=== PATIENT | male | born 1990 | race American Indian/Alaskan Native ===

== ENCOUNTER 2019-03-29 16:03 | Emergency (ER) | payer SELFPAY ==
--- NOTE | 2019-03-29 16:50 | Event Note ---
ED Screening Note Date of service: 03/29/19 Time: 16:46 ED Screening Note: 28 y/o male comes in for dysuria times today. Not sure if he is having penile discharge. Sexually active with both males and females unprotected. No PMH. No meds. This initial assessment/diagnostic orders/clinical plan/treatment(s) is/are subject to change based on patients health status, clinical progression and re- assessment by fellow clinical providers in the ED. Further treatment and workup at subsequent clinical providers discretion. Patient/guardian urged not to elope from the ED as their condition may be serious if not clinically assessed and managed. Initial orders include:
[2019-03-29 20:20] LABS: Bilirubin,Urine NEG (Negative); Blood,Urine NEG (Negative); Color,Urine Yellow (Yellow); Mucus,Urine FEW /HPF; Protein,Urine <15 mg/dL mg/dL (Negative); Urobilinogen,Urine < 2.0 mg/dL (<2.0)
[2019-03-29] MEDS ORDERED: ZITHROMAX PO ONE (20:22)
[2019-03-29] MEDS ORDERED: ROCEPHIN IM ONE (20:22)
[2019-03-29] MEDS ORDERED: XYLOCAINE 1% MPF 5 mL INFILTRATI ONE (20:22)
--- NOTE | 2019-03-29 20:31 | Emergency Department Report ---
ED Male HPI - General Chief complaint: Urogenital-Male Stated complaint: PAIN WITH URINATION Time Seen by Provider: 03/29/19 16:46 Source: patient Mode of arrival: Ambulatory Limitations: No Limitations - History of Present Illness Initial comments: Patient is a 28-year-old male presents the emergency room with complaint of dysuria that began 2 days ago. States he did have unprotected intercourse. He states he noticed a small amount of penile discharge couple days ago but has not experienced since then. He denies any testicular pain, testicular edema, penile pain, penile lesions, penile blisters. denies any histories of STDs in the past. pt denies any past medical history or allergies to medications. - Related Data Allergies Allergy/AdvReac Type Severity Reaction Status Date / Time No Known Allergies Allergy Unverified 03/29/19 16:06 ED Review of Systems ROS: Stated complaint: PAIN WITH URINATION Other details as noted in HPI Comment: All other systems reviewed and negative ED Past Medical Hx - Past Medical History Previous Medical History?: No - Surgical History Past Surgical History?: No - Social History Smoking Status: Never Smoker Substance Use Type: None ED Physical Exam - General Limitations: No Limitations General appearance: alert, in no apparent distress - Head Head exam: Present: atraumatic, normocephalic - Eye Eye exam: Present: normal appearance - ENT ENT exam: Present: mucous membranes moist - Respiratory Respiratory exam: Present: normal lung sounds bilaterally. Absent: respiratory distress, wheezes, rales, rhonchi, stridor, accessory muscle use, decreased breath sounds, prolonged expiratory - Cardiovascular Cardiovascular Exam: Present: regular rate, normal rhythm, normal heart sounds. Absent: systolic murmur, diastolic murmur, rubs, gallop - GI/Abdominal GI/Abdominal exam: Present: soft, normal bowel sounds. Absent: distended, tenderness, guarding, rebound, rigid - exam: Present: other (pt defered ) - Neurological Exam Neurological exam: Present: alert, oriented X3 - Psychiatric Psychiatric exam: Present: normal affect, normal mood - Skin Skin exam: Present: warm, dry, intact ED Course Vital Signs 03/29/19 03/29/19 16:46 21:27 Temperature 98.7 F 98.1 F Pulse Rate 90 83 Respiratory 18 18 Rate Blood Pressure 146/87 Blood Pressure 129/87 [Right] O2 Sat by Pulse 97 100 Oximetry ED Medical Decision Making - Lab Data Lab Results 03/29/19 Range/Units 20:04 Urine Color Yellow (Yellow) Urine Turbidity Clear (Clear) Urine pH 5.0 (5.0-7.0) Ur Specific [place] 1.023 (1.003-1.030) Urine Protein <15 mg/dl (Negative) mg/dL Urine Glucose (UA) Neg (Negative) mg/dL Urine Ketones Tr (Negative) mg/dL Urine Blood Neg (Negative) Urine Nitrite Neg (Negative) Urine Bilirubin Neg (Negative) Urine Urobilinogen < 2.0 (<2.0) mg/dL Ur Leukocyte Esterase Sm (Negative) Urine WBC (Auto) 29.0 H (0.0-6.0) /HPF Urine RBC (Auto) 3.0 (0.0-6.0) /HPF U Epithel Cells (Auto) < 1.0 (0-13.0) /HPF Urine Mucus Few /HPF - Medical Decision Making Patient is a 28-year-old male presents the emergency room with complaint of dysuria that began 2 days ago. States he did have unprotected intercourse. He states he noticed a small amount of penile discharge couple days ago but has not experienced since then. He denies any testicular pain, testicular edema, penile pain, penile lesions, penile blisters. denies any histories of STDs in the past. pt denies any past medical history or allergies to medications. UA shows many WBCs and small amount of leukocyte esterase. G/C sent. will tx pt empirically with azithromycin and ceftriaxone. advised to abstain from sexual intercourse for 10 days. Check back with medical records in one week for results of your tests. please have all partners tested and treated as well. please be seen by the health department or a primary care clinic for further STD testing. Return to the emergency room for any new or worsening symptoms. Critical care attestation.: If time is entered above; I have spent that time in minutes in the direct care of this critically ill patient, excluding procedure time. ED Disposition Clinical Impression: Dysuria Disposition: [id number] TO HOME OR SELFCARE Is pt being admited?: No Does the pt Need Aspirin: No Condition: Stable Instructions: Sexually Transmitted Diseases (ED), Safe Sex (ED), Dysuria (ED) Additional Instructions: abstain from sexual intercourse for 10 days. Check back with medical records in one week for results of your tests. please have all partners tested and treated as well. please be seen by the health department or a primary care clinic for further STD testing. Return to the emergency room for any new or worsening symptoms. Referrals: VISHAL VALDEZ MD [Primary Care Provider] - 2-3 Days [facility] [Outside] - 2-3 Days Time of Disposition: 20:31 Print Language: THAI
[2019-03-29 21:28] VITALS: BP 129/87
== END 2019-03-29 21:28 | disposition home or self-care (01) ==
LOC: ED 16:03
DX: R30.0 Dysuria (principal); R36.9 Urethral discharge, unspecified
CPT/HCPCS: 81001; 87086; 96372; 99283; J0696